=== PATIENT | male | born 1985 | race African-American/Black ===

== ENCOUNTER 2020-07-09 03:09 | Emergency (ER) | payer SELFPAY ==
[~2020-07-09] VITALS: Ht 172.7 cm; Wt 45.0 kg
[2020-07-09] MEDS ORDERED: NALOXONE 0.4 MG/ML VIAL. ONE (03:14)
[2020-07-09] MEDS ORDERED: PANT20TA2 PO (03:25)
[2020-07-09 03:48] LABS: BASO # 0.1 x10^3/uL (0.0-0.2); BASO % 1 % (0-3); EOS # 0.1 x10^3/uL (0.0-0.7); EOS % 1 % (0-3); HEMATOCRIT 41.9 % (39.0-53.0); HEMOGLOBIN 13.7 g/dL (13.0-17.5); LYMPH # 2.8 x10^3/uL (1.0-4.8); LYMPH % 32 % (24-48); MEAN CORPUSCULAR HEMOGLOBIN 30 pg (25-35); MEAN CORPUSCULAR HGB CONC 33 g/dL (31-37); MEAN CORPUSCULAR VOLUME 93 fL (79-100); MONO # 0.5 x10^3/uL (0.0-1.1); MONO % 6 % (0-9); NEUT # 5.2 x10^3/uL (1.8-7.7); NEUT % 60 % (31-73); PLATELET COUNT 205 x10^3/uL (140-400); RED BLOOD COUNT 4.52 x10^6/uL (4.30-5.70); RED CELL DISTRIBUTION WIDTH 12.7 % (11.5-14.5); WHITE BLOOD COUNT 8.6 x10^3/uL (4.0-11.0)
[2020-07-09 03:58] LABS: CALCIUM 8.5 mg/dL (8.5-10.1); GFR 85.5; POTASSIUM 3.6 mmol/L (3.5-5.1)
--- NOTE | 2020-07-09 03:59 | PHYS DOC ---
General Adult EDM: Chief Complaint: ALTERED MENTAL STATUS HPI: HPI: Patient is a 35 year old male past medical history GERD cerebral palsy presents for evaluation after being found laying on the ground unresponsive. EMS state patients initial gcs was 5. Patient was found by PD face down in the grass. EMS states cigarette/thc found in close proximity to patient. On arrival patient's vital signs are stable. His gcs 12. He is very drowsy. His pupils appeared to be constricted 3-4mm. Patient received Narcan 0.4mg IM. Patient mental status improved. He stated he has a history of CP. States he drank tonight. He states he has a history of THC and PCP use-- but denies any tonight. Review of Systems: Review of Systems: limited due to medical condition Heart Score: Risk Factors: Risk Factors: DM, Current or recent (<one month) smoker, HTN, HLP, family history of CAD, obesity. Risk Scores: Score 0 - 3: 2.5% MACE over next 6 weeks - Discharge Home Score 4 - 6: 20.3% MACE over next 6 weeks - Admit for Clinical Observation Score 7 - 10: 72.7% MACE over next 6 weeks - Early Invasive Strategies Current Medications: Current Medications Medications (Trade) Dose Ordered Sig/Williams Start Time Stop Time Status Last Admin Dose Admin Naloxone HCl (Narcan) 0.4 mg STK-MED ONCE 07/09/20 03:14 07/09/20 03:14 DC Sodium Chloride 1,000 ml @ 1,000 mls/hr 1X ONCE 07/09/20 04:00 07/09/20 04:59 Allergies: Allergies: Allergies Coded Allergies Type Severity Reaction Last Updated Verified No Known Drug Allergies 07/09/20 No Physical Exam: PE: Constitutional: Well developed, well nourished, no acute distress, non-toxic appearance. [] HENT: Normocephalic, atraumatic, bilateral external ears normal, oropharynx moist, no oral exudates, nose normal. [] Eyes: , EOMI, pupils 3-4mm, conjunctiva normal, no discharge. [] Neck: Normal range of motion, no tenderness, supple, no stridor. [] Cardiovascular:Heart rate regular rhythm, no murmur [] Lungs & Thorax: Bilateral breath sounds clear to auscultation [] Abdomen: Bowel sounds normal, soft, no tenderness, no masses, no pulsatile masses. [] Skin: Warm, dry, no erythema, no rash. [] Back: No tenderness, no CVA tenderness. [] Extremities: No tenderness, no cyanosis, no clubbing, ROM intact, no edema. [] Neurologic: Alert ,stutters his words, , no focal weakness noted. [] EKG: EKG: [] Radiology/Procedures: Radiology/Procedures: [] Course & Med Decision Making: Course & Med Decision Making Pertinent Labs and Imaging studies reviewed. (See chart for details) []Patient evaulated for chief complaint. Alcohol > 240. Treatment with IV fluids. Patient observed. Re-evaluation @ 0530hrs. Patient urinated on himself. Nursing attempted to obtain urine via ordaz. Patients bladder empty. 2nd L NS ordered. Ryanne Disclaimer: Ryanne Disclaimer: This electronic medical record was generated, in whole or in part, using a voice recognition dictation system. Departure Departure Impression: Primary Impression: Altered mental status Additional Impression: Alcohol intoxication Disposition: 01 HOME, SELF-CARE Condition: STABLE Patient Instructions: Alcohol Intoxication CT DAVILA DO Jul 09, 2020 03:59
[2020-07-09] MEDS ORDERED: IV NORMAL SALINE 1000ML BAG 1,000 ML IV ONE ×2 (04:00→06:00)
[2020-07-09 04:03] LABS: ALBUMIN 3.8 g/dL (3.4-5.0); ALBUMIN/GLOBULIN RATIO 1.2 (1.0-1.7); TOTAL BILIRUBIN 0.2 mg/dL (0.2-1.0); TOTAL PROTEIN 6.9 g/dL (6.4-8.2)
[2020-07-09 05:45] LABS: BARBITURATES NEG (NEG); BENZODIAZEPINES NEG (NEG); CANNABINOIDS POS (NEG); COCAINE NEG (NEG); METHADONE NEG (NEG); OPIATES NEG (NEG); PHENCYCLIDINE POS (NEG)
[2020-07-09] MEDS ORDERED: NALOXONE 0.4 MG/ML VIAL. IM ONE (05:45)
[2020-07-09 05:48] LABS: AMPHETAMINE/METHAMPHETAMINE NEG (NEG)
[2020-07-09 11:06] VITALS: BP 97/54
== END 2020-07-09 11:25 | disposition home or self-care (01) ==
LOC: ER 03:09 → EDBD 03:09 → ER 11:25
DX: F10.129 Alcohol abuse with intoxication, unspecified (principal); R41.82 Altered mental status, unspecified; G80.9 Cerebral palsy, unspecified; K21.9 Gastro-esophageal reflux disease without esophagitis; Y90.7 Blood alcohol level of 200-239 mg/100 ml
CPT/HCPCS: 36415; 80053; 80307; 85025; 96360; 96361; 96372; 99285; G0480; J2310; J7030